=== PATIENT | male | born 1960 | race Caucasian/White ===

== ENCOUNTER 2024-12-08 06:22 | Day surgery (SDC) | payer OTHER, SELFPAY | END 2024-12-08 16:21 | disposition home or self-care (01) | LOC: GI 06:22 | PROVIDERS: ATTENDING PHYSICIAN Internal Medicine Gastroenterology | DX: Z12.11 Encounter for screening for malignant neoplasm of colon (principal); K57.30 Diverticulosis of large intestine without perforation or abscess without bleeding; K64.8 Other hemorrhoids; Z86.0101 Personal history of adenomatous and serrated colon polyps | CPT/HCPCS: G0105 ==

== ENCOUNTER 2025-06-18 20:28 | Emergency (ER) | payer OTHER, SELFPAY ==
[2025-06-18] VITALS (11 sets, daily range): BP systolic 105–156; BP diastolic 54–77; PULSE 82–93; BMI 28.7
[2025-06-18 20:48] LABS: Hematocrit 42.1 % (39.0-52.0); Hemoglobin 15.0 g/dL (13.0-18.0); Mean Corp Hgb Conc. 35.6 g/dL (33.0-37.0); Mean Corpuscular Volume 91.3 fL (80.0-94.0); Nucleated Red Blood Cells % 0 % (-); Platelet Count 278 10^3/uL (130-400); Red Cell Dist. Width 13.0 % (11.5-14.5)
[2025-06-18 21:08] LABS: ALT (SGPT) 33 U/L (0-50); AST (SGOT) 27 U/L (17-59); Albumin 4.3 g/dl (3.5-5.0); Alkaline Phosphatase 60 U/L (38-126); Blood Urea Nitrogen 24 mg/dl (9-20); Calcium 9.3 mg/dl (8.4-10.2); Carbon Dioxide 28 mmol/L (22-30); Chloride 104 mmol/L (98-107); Estimated Creatinine Clearance 54 ml/min; Glucose 120 mg/dl (70-99); Potassium 3.7 mmol/L (3.5-5.1); Sodium 137 mmol/L (135-145); Total Protein 6.9 g/dl (6.3-8.2); eGFR > 60.00
[2025-06-18] MEDS: NSS 1000 IV (22:25)
[2025-06-18 23:06] LABS: Troponin I 0.019 ng/ml
[2025-06-19] VITALS: BP 125/72
[2025-06-19 00:08] VITALS: BP 137/79
[2025-06-19 00:09] VITALS: BP 150/94
[2025-06-19 00:10] VITALS: BP 143/74
[2025-06-19 00:13] VITALS: BP 137/79; BP 143/74; BP 150/94; PULSE 92; PULSE 94; PULSE 97
[2025-06-19 00:30] VITALS: BP 151/83
--- NOTE | 2025-06-19 01:07 | ED.GENMED ---
History of Present Illness
General
Chief Complaint: Fainting/Passed Out
Time Seen by Provider: 06/18/25 22:07
History of Present Illness
History of Present Illness:
Note:
CHIEF COMPLAINT(S)
Syncope episodes accompanied by nausea and lightheadedness.
HISTORY OF PRESENT ILLNESS
The patient is a 65-year-old male who experienced several episodes of syncope earlier today while getting a haircut. He reported feeling nauseous and lightheaded before passing out. During these episodes, he appeared disoriented and did not remember
what happened. He experienced similar episodes approximately nine years ago. The patient denies any chest pain and reports that he usually engages in regular physical activity, such as nightly walks. However, the family mentioned increased stress
related to wrapping presents for ten grandchildren. He had a recent physical examination two weeks ago, which was reported as normal. There is no history of similar episodes after his catheter ablation 13-15 years ago.
PAST MEDICAL AND SURGICAL HISTORY
The patient underwent catheter ablation approximately 13-15 years ago for an electrical issue. No further cardiac issues have been noted since the procedure.
FAMILY HISTORY
The patients mother is alive at the age of 93 and recently had a heart valve replacement. The father at 60 due to complications related to alcoholism and smoking.
SOCIAL HISTORY
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 He reports some stress related to family responsibilities, including caring for ten grandchildren.
PHYSICAL EXAM
General: Alert, no acute distress.
Skin: Warm, dry. Tattoo right shoulder
Head: Normocephalic, atraumatic.
Neck: Supple, trachea midline.
Eye, ears, nose, mouth, and throat: Oral mucosa moist.
Cardiovascular: Normal peripheral perfusion, no edema.
Respiratory: Respirations are non-labored.
Gastrointestinal: Abdomen nondistended.
Back: Normal range of motion, normal alignment.
Musculoskeletal: Normal range of motion, normal strength.
Neurological: Alert and oriented to person, place, time, and situation, no focal neurological deficit observed.
Psychiatric: Cooperative, appropriate mood, and affect.
PROBLEM LIST
- Acute: Syncope, nausea, and lightheadedness.
PLAN
- Administer intravenous fluids and monitor the patient�s response. Orthostatic vital signs
- Perform a head scan to rule out any other neurological issues.
- Check cardiac enzymes if not performed previously, and repeat if necessary.
- Determine further evaluation based on results; if stable, the patient may be discharged home.
DIFFERENTIAL DIAGNOSIS
The Differential Diagnosis includes, in no particular order and is not limited to:
1. Vasovagal syncope
2. Orthostatic hypotension
3. Cardiac arrhythmia
4. Transient ischemic attack
5. Hypoglycemia
6. Dehydration
7. Electrolyte imbalance
8. Anemia
9. Medication side effects
10. Seizure disorder
CARE-UPDATE
06/18/25 - 22:32
The patient reported experiencing a similar episode approximately nine years ago, which resulted in an emergency landing and emergency department evaluation. Previous testing indicated dehydration. His confirmed ongoing efforts to maintain
hydration by consuming multiple bottles of water daily. He has not experienced any similar episodes since that incident until tonight, with symptoms closely resembling his prior dehydration episode.
CARE-UPDATE
06/18/25 - 23:[address] scan indicates no acute abnormalities detected.
Disposition:
SUMMARY OF ENCOUNTER
The patient is a 65-year-old male who presented with an episode of syncope. He has a history of similar episodes related to dehydration. Recent lab work indicated slight dehydration with a BUN of 24 and creatinine of 1.2. Troponin levels are 0.019,
and his EKG shows sinus rhythm with a rate of 61, normal intervals, normal axis, and no evidence of acute ischemia. The patient denies chest pain.
DISPOSITION
Discharge home.
PLAN
The patient is to follow up with Dr. Saran Luis, his air hoist operator, for further evaluation and management.
INDEPENDENT REVIEW OF LABS AND INTERPRETATION OF TESTS
- My independent review of BMP indicates slight dehydration, evidenced by a BUN of 24 and creatinine of 1.2.
- My independent review of cardiac enzymes shows a troponin level of 0.019, within normal limits.
- My independent EKG interpretation shows sinus rhythm with a rate of 61, normal intervals, normal axis, and no evidence of acute ischemia.
FOLLOW-UP INSTRUCTIONS
Follow up with Dr. Saran Luis, air hoist operator, as previously scheduled.
MEDICAL DECISION MAKING
- Number and Complexity of Problems Addressed: Chronic conditions affecting care - Dehydration.
- Data:
- Category 1: Lab tests reviewed include BMP and troponin levels.
- Category 2: My independent interpretation of the EKG indicates sinus rhythm with no signs of acute ischemia.
- Risk: Consideration of Admission/Observation: Escalation of care including admission/observation was considered given the complexity and risk of the patients presenting complaint and exam findings. However, ultimately I feel the patient is safe
for outpatient management with close follow up. Work-up reassuring, does not reveal any acute life/organ threatening processes, patients symptoms well controlled upon reevaluation, reexamination is reassuring, vitals are stable, patient agreeable
with discharge, reliable for follow-up.
DIAGNOSIS
- R55: Syncope and collapse.
- E86.9: Dehydration, unspecified.
Past History
Past History
ED Past Medical History: Arrthythmia, HTN (borderline) and Other (SVT)
Social History
Tobacco: Non-smoker
Living: with family
Family History
Family History: Other (father with heart failure in his late 50's. heavy smoker and alcoholic.)
Phy Exam
Physical Exam
Physical Exam:
.
Course
Orders/Labs/Results
Orders:
Orders
06/18/25 20:29
Electrocardiogram (*1) Urgent
Reason for Study: Chest Pain
EKG- Treatment ONCE
06/18/25 20:38
Complete Blood Count/With Diff Urgent
Comprehensive Metabolic Panel Urgent
06/18/25 22:20
Orthostatic VS- Treatment ONCE
0.9% Sodium Chloride 1000 ml [Nss] 1,000 ml IV BOLUS
06/18/25 22:21
CT Head W/o Iv Contrast Urgent
Comment:
Reason For Exam: syncope
06/18/25 22:25
Troponin I Urgent
06/19/25 01:10
Electrocardiogram (*1) Urgent
Reason for Study: Vertigo / Dizzy
EKG- Treatment ONCE
06/19/25 01:18
Troponin I Urgent
Abnormal Lab Results
06/18/25
20:38
RBC 4.61 L 10^6/uL
(4.70-6.10)
MCH 32.5 H pg
(27.0-31.0)
Absolute Lymphs (auto) 3.5 H 10^3/uL
(1.2-3.4)
Absolute Monos (auto) 1.1 H 10^3/uL
(0.1-0.6)
Monocytes % 10.8 H %
(1.7-9.3)
BUN 24 H mg/dl
(9-20)
Glucose 120 H mg/dl
(70-99)
06/18/25 20:38
06/18/25 20:38
Vital Signs
Initial and Last Documented VS:
Initial Vital Signs
Temp Pulse Resp BP Pulse Ox
97.9 F 61 18 119/64 98
06/18/25 20:31 06/18/25 20:31 06/18/25 20:31 06/18/25 20:31 06/18/25 20:31
Last Documented Vital Signs
Temp Pulse Resp BP Pulse Ox
97.9 F 89 10 151/83 97
06/18/25 20:31 06/19/25 00:45 06/19/25 00:45 06/19/25 00:30 06/19/25 01:08
*Pulse Oximetry
SaO2: 97
Oxygen Mode of Delivery: Room air
Patient hypoxic: no
*Critical Care Note
Total Time (30-74mins, 75-104mins- exclusive of procedures): Not Applicable
ED Attending Note
-
Portions of this chart may have been created with voice recognition software.� Occasional wrong word or��sound alike� substitutions may have occurred due to the inherent limitations of voice recognition software.
Discharge Plan
Departure
Patient Disposition: Home (Routine Discharge)
Date of Disposition: 06/19/25
Time of Disposition: 02:09
Patient with high blood pressure during this ER visit?: Yes
Discharge Problem:
Syncope
Instructions: Syncope (Fainting) (DC)
Prescriptions:
No Action
atorvastatin 10 mg Tablet
10 mg PO DAILY
lisinopril 10 mg Tablet
10 mg PO DAILY
Referrals:
Fabrice Serrano MD [Active, Cardiology]
UNKNOWN - PT DOES,NOT KNOW [Family Provider]
Activity Restrictions/Additional Instructions:
Please follow-up with your air hoist operator, Dr. Serrano as discussed. Call his office to make an appointment.
Thank You for choosing [facility].
It was a pleasure meeting you and taking part in your care. We hope for your continued healing and wellness.
Please read discharge instructions in their entirety. However, they are for general education and may not describe your exact diagnosis at discharge. Information on your ER visit and medical conditions were discussed with you along with appropriate
follow up information...
If indicated, please take your medications as instructed and indicated on discharge paperwork.
Please schedule a follow up appointment as directed. Call to schedule an appointment
Please return to the emergency department with ANY change in, persisting, or worsening of symptoms. If any of your symptoms do not improve, or persist, or become more severe within 6-12 hours, please return to the emergency department for further
care.
Please return to the emergency department if you develop a headache, neck pain/stiffness, fever greater than 100.4F, chest pain, shortness of breath, persistent nausea, vomiting, slurred speech, difficulty walking, numbness/tingling, weakness, signs
of infection or any other symptoms that are worrisome to you.
If you have any questions or concerns please do not hesitate to call the Hospital at .
Interventions
Interventions:
*Risk Screen - Suicide Last Done: 06/18/25 20:37
*General Assessment Last Done: 06/18/25 20:35
*Neglect/Abuse Screening Last Done: 06/18/25 20:37
*ED COVID-19 Vaccine History Last Done: 06/18/25 20:35
*ED Influenza Vaccine History Last Done: 06/18/25 20:35
[facility] Fall Risk Assessment Tool Last Done: 06/18/25 20:34
*Nursing Disposition Last Done: 06/19/25 02:16
ED- Cardiac Assessment Last Done: 06/18/25 20:38
ED- Neurological Assessment Last Done: 06/18/25 20:38
Discharge Date and Time
Discharge Date/Time: 06/19/25 02:17
Print Language: [id number]
[2025-06-19 01:59] LABS: Troponin I < 0.012 ng/ml
== END 2025-06-19 02:17 | disposition home or self-care (01) ==
LOC: EMR 20:28
PROVIDERS: Emergency Medicine; EMERGENCY PHYSICIAN Student in an Organized Health Care Education/Training Program
DX: R55 Syncope and collapse (principal); E86.0 Dehydration; I10 Essential (primary) hypertension
CPT/HCPCS: 96360; 99284; 70450; 80053; 84484; 85025; 93005